=== PATIENT | male | born 1990 | race Caucasian/White ===

== ENCOUNTER 2016-02-23 17:01 | Emergency (ER) | payer OTHER ==
--- NOTE | 2016-02-23 19:27 | ED ORDER SUMMARY ---
..... Patient: EDGARD HORNER OrderSheet [facility] VisitID: [id number] [place] [address] 26y, M Registration Date/Time: 02/23/2016 ORDER SHEET Weight: 99.7 kg (stated) Allergies: PCN GENERAL ORDERS: CBC w Diff Urgent (18:07 02/23/2016 EKoroleva P.A.-C) (Ack 18:36 LNations ER Tech1) (18:46 DDean R.N.) CMP Urgent (18:07 02/23/2016 EKoroleva P.A.-C) (Ack 18:37 LNations ER Tech1) (18:46 DDean R.N.) UA-Culture if indicated Urgent (18:02/23/2016 EKoroleva P.A.-C) (Ack 18:37 LNations ER Tech1) (18:46 DDean R.N.) Lipase Urgent (18:07 02/23/2016 EKoroleva P.A.-C) (Ack 18:37 LNations ER Tech1) (18:46 DDean R.N.) CT Abd/Pel w Cont (No) (see lab) Urgent (19:31 02/23/2016 EKoroleva P.A.-C) (Ack 19:35 NHouse ER Tech1) (20:02 NHouse ER Tech1) MEDICATION ORDERS: IV FLUIDS: IV NS : initial bolus 1000 mL (1000 mL/hr), then 1000 mL/hr for X1 (NOW); Tim (18:07 02/23/2016 EKoroleva P.A.-C) (Ack 18:28 DDean R.N.) (18:47 DDean R.N.) ORDER SHEET NOTES: [Electronically signed by sIatu Valenzuela P.A.-C (20:35 02/23/2016)] [Electronically signed by Mckayla Combs R.N. (21:05 02/23/2016)] [Electronically locked/signed by Mckayla Combs R.N. (21:02/23/2016)]
--- NOTE | 2016-02-23 19:27 | ED ORDER SUMMARY ---
..... Patient: EDGARD HORNER OrderSheet [facility] VisitID: [id number] [place] [address] 26y, M Registration Date/Time: 02/23/2016 ORDER SHEET Weight: 99.7 kg (stated) Allergies: PCN GENERAL ORDERS: CBC w Diff Urgent (18:07 02/23/2016 EKoroleva P.A.-C) (Ack 18:36 LNations ER Tech1) (18:46 DDean R.N.) CMP Urgent (18:07 02/23/2016 EKoroleva P.A.-C) (Ack 18:37 LNations ER Tech1) (18:46 DDean R.N.) UA-Culture if indicated Urgent (18:02/23/2016 EKoroleva P.A.-C) (Ack 18:37 LNations ER Tech1) (18:46 DDean R.N.) Lipase Urgent (18:07 02/23/2016 EKoroleva P.A.-C) (Ack 18:37 LNations ER Tech1) (18:46 DDean R.N.) CT Abd/Pel w Cont (No) (see lab) Urgent (19:31 02/23/2016 EKoroleva P.A.-C) (Ack 19:35 NHouse ER Tech1) (20:02 NHouse ER Tech1) MEDICATION ORDERS: IV FLUIDS: IV NS : initial bolus 1000 mL (1000 mL/hr), then 1000 mL/hr for X1 (NOW); Tim (18:07 02/23/2016 EKoroleva P.A.-C) (Ack 18:28 DDean R.N.) (18:47 DDean R.N.) ORDER SHEET NOTES: [Electronically signed by Isatu Valenzuela P.A.-C (20:35 02/23/2016)] [Electronically signed by Mckayla Combs R.N. (21:05 02/23/2016)] [Electronically locked/signed by Mckayla Combs R.N. (21:02/23/2016)]
--- NOTE | 2016-02-23 19:27 | ED NURSING NOTES ---
Clinical Report - Nurses [facility] [place] [address] 02/23/2016 17:03 [id number] Triage time 17:40 Feb 23 2016. Acuity: LEVEL 3. Chief Complaint: ABDOMINAL PAIN and NAUSEA. Alert. No acute distress. --17:46 Brittney Witt R.N. 17:40 02/23/16. BP: 130/78. HR: 84. RR: 18. O2 saturation: 100%. Temp: 98.2 F. Pain level now 11/23. --17:46 Brittney Witt R.N. Weight: 99.7 kg stated. Height/Length: 73 inches Per Patient. BMI: 29. --17:39 Brittney Witt R.N. Medications Amantadine HCl Oral 100 mg, daily. LamoTRIgine Oral 100mg , daily. [place] Carbonate Oral (Capsule 300 mg), daily . RisperiDONE Oral (Tablet Dispersible 2 mg), 2x a day. Stool Softener Oral. Tylenol, as needed. --17:43 Brittney Witt R.N. Medication/allergy information source: the patient. --17:46 Brittney Witt R.N. Allergies PCN. --17:43 Brittney Witt R.N. History Arrived by private vehicle. Historian: patient. Accompanied by family and father. Primary physician (Maryam). ( Abdominal Pain 11/23. Started Tuesday. Diarrhea. Went to [facility], was told he may have Appendicitis. PROV was a 4 hour wait. Had a temp at [facility] was 100.1.). Onset. (since Tuesday). He has had nausea and diarrhea. Last oral intake by patient was (since last Tuesday). 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 SOCIAL HX: Heavy tobacco smoker (cigarette)- 1 pack per day. History of drug use: marijuana. No alcohol use. No infectious disease exposure. FALL RISK ASSESSMENT: Fall risk assessment completed. No fall risk identified. NUTRITIONAL RISK ASSESSMENT: The nutritional risk assessment revealed no deficiencies. FUNCTIONAL ASSESSMENT: Functional assessment: no impairments noted. LEARNING NEEDS ASSESSMENT: The learning needs assessment revealed no barriers. SKIN INTEGRITY ASSESSMENT: Skin integrity risk assessment completed. No skin integrity risk identified. --17:46 Brittney Witt R.N. PROBLEMS: Anxiety Reaction. Depression. Schizophrenia. Immunizations. --17:44 Brittney Witt R.N. ADDITIONAL SURGERIES: Back Surgery. --17:44 Brittney Witt R.N. Interventions ID band on patient. To room. --17:46 Brittney Witt R.N. PHYSICAL ASSESSMENT 1820. Ambulatory to room. Patient gowned. GENERAL / NEURO / PSYCH: Alert. Oriented X 4. Appears in pain and anxious. ( pt is developmentally delayed). RESPIRATORY: Respirations not labored. CVS: Capillary refill less than 2 seconds. GI / : The patient has diarrhea (1400 last diarrhea). No nausea noted. No emesis noted. ( pt has bruising on left flank area, denies known injury). SKIN: Skin is warm and dry. --18:30 Mckayla Combs R.N. NURSING PROGRESS NOTES 18:20. Patient gowned. Head of bed elevated. Reassurance given. Patient identifiers checked. Call light placed in reach. Side rails up. Bed placed in lowest position. Patient ready for evaluation- chart flagged. --18:27 Mckayla Combs R.N. 18:22. Patient ID band checked for patient name and birthdate: patient confirmed. Clean catch urine collected with return of yellow-colored cloudy urine; sample sent to lab for urinalysis and culture. Specimen labeled in the presence of the patient. --18:28 Mckayla Combs R.N. 18:30 02/23/2016 Site #1 started via IV in the left antecubital space with an 20g angiocath, with aseptic technique and good blood return; one attempt. Blood drawn: rainbow set. Labeled in the presence of the patient and sent to the lab. Saline lock flushed with 10 mL saline. --18:46 Mckayla Combs R.N. <<STRICKEN ENTRY-- 18:30 02/23/2016 Started bag #1 1000 mL IV Fluids IV NS (Saline); at 1000 mL/hr over 1 minute(s) via site #1 via IV pump. IV patency established. IV site checked: no pain, redness, or swelling. IV flushed thoroughly pre- and post-medication administration. --18:47 Mckayla Combs R.N. --END STRIKE>> Correction. --19:35 Mckayla Combs R.N. 18:30 02/23/16. BP: 130/81. HR: 83. RR: 18. Temp: deferred. Pain level now: 10/24. --18:48 Mckayla Combs R.N. 19:33 02/23/16. BP: 122/77. HR: 72. RR: 18. O2 saturation: 97%. Pain level now: 08/23. --19:34 Mckayla Combs R.N. 18:30 02/23/2016 Started bag #1 1000 IV Fluids IV NS (Saline); at 1000 mL/hr over 1 hour(s) via site #1 via IV pump. IV patency established. IV site checked: no pain, redness, or swelling. IV flushed thoroughly pre- and post-medication administration. --19:35 Mckayla Combs R.N. 19:26 02/23/2016 IV Fluids IV NS Discontinued: bag #1 infused. Total amount infused: 1000 mL. IV patency established. IV site checked: no pain, redness, or swelling. IV flushed thoroughly. (converted to saline lock). --19:36 Mckayla Combs R.N. 19:47. Patient transported to OR by stretcher with tech. --20:03 Mckayla Combs R.N. 19:57. Patient returned from CT by stretcher with tech. --20:04 Mckayla Combs R.N. 20:05 02/23/2016 Site #1 removed upon discharge. Bandaid applied. --21:05 Mckayla Combs R.N. DISPOSITION / DISCHARGE 20:15. Condition at departure: stable. Discharge instructions provided and reviewed with the parent. Parent verbalized understanding. Written instructions provided in Yoruba. The patient was discharged home and accompanied by parent. He left the Emergency Department ambulatory and via private vehicle. Parent driving. --21:04 Mckayla Combs R.N. 20:15 02/23/16. BP: 120/70. HR: 76. RR: 18. O2 saturation: 98%. Temp: deferred. Pain level now: 08/23. --21:04 Mckayla Combs R.N. Locked/Released at 02/23/2016 21:05 by Mckayla Combs R.N.
--- NOTE | 2016-02-23 19:27 | ED NURSING NOTES ---
Clinical Report - Nurses [facility] [address] 02/23/2016 17:03 [id number] Triage time 17:40 Feb 23 2016. Acuity: LEVEL 3. Chief Complaint: ABDOMINAL PAIN and NAUSEA. Alert. No acute distress. --17:46 Brittney Witt R.N. 17:40 02/23/16. BP: 130/78. HR: 84. RR: 18. O2 saturation: 100%. Temp: 98.2 F. Pain level now 11/23. --17:46 Brittney Witt R.N. Weight: 99.7 kg stated. Height/Length: 73 inches Per Patient. BMI: 29. --17:39 Brittney Witt R.N. Medications Amantadine HCl Oral 100 mg, daily. LamoTRIgine Oral 100mg , daily. [place] Carbonate Oral (Capsule 300 mg), daily . RisperiDONE Oral (Tablet Dispersible 2 mg), 2x a day. Stool Softener Oral. Tylenol, as needed. --17:43 Brittney Witt R.N. Medication/allergy information source: the patient. --17:46 Brittney Witt R.N. Allergies PCN. --17:43 Brittney Witt R.N. History Arrived by private vehicle. Historian: patient. Accompanied by family and father. Primary physician (Maryam). ( Abdominal Pain 11/23. Started Tuesday. Diarrhea. Went to [facility], was told he may have Appendicitis. PROV was a 4 hour wait. Had a temp at [facility] was 100.1.). Onset. (since Tuesday). He has had nausea and diarrhea. Last oral intake by patient was (since last Tuesday). 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 SOCIAL HX: Heavy tobacco smoker (cigarette)- 1 pack per day. History of drug use: marijuana. No alcohol use. No infectious disease exposure. FALL RISK ASSESSMENT: Fall risk assessment completed. No fall risk identified. NUTRITIONAL RISK ASSESSMENT: The nutritional risk assessment revealed no deficiencies. FUNCTIONAL ASSESSMENT: Functional assessment: no impairments noted. LEARNING NEEDS ASSESSMENT: The learning needs assessment revealed no barriers. SKIN INTEGRITY ASSESSMENT: Skin integrity risk assessment completed. No skin integrity risk identified. --17:46 Brittney Witt R.N. PROBLEMS: Anxiety Reaction. Depression. Schizophrenia. Immunizations. --17:44 Brittney Witt R.N. ADDITIONAL SURGERIES: Back Surgery. --17:44 Brittney Witt R.N. Interventions ID band on patient. To room. --17:46 Brittney Witt R.N. PHYSICAL ASSESSMENT 1820. Ambulatory to room. Patient gowned. GENERAL / NEURO / PSYCH: Alert. Oriented X 4. Appears in pain and anxious. ( pt is developmentally delayed). RESPIRATORY: Respirations not labored. CVS: Capillary refill less than 2 seconds. GI / : The patient has diarrhea (1400 last diarrhea). No nausea noted. No emesis noted. ( pt has bruising on left flank area, denies known injury). SKIN: Skin is warm and dry. --18:30 Mckayla Combs R.N. NURSING PROGRESS NOTES 18:20. Patient gowned. Head of bed elevated. Reassurance given. Patient identifiers checked. Call light placed in reach. Side rails up. Bed placed in lowest position. Patient ready for evaluation- chart flagged. --18:27 Mckayla Combs R.N. 18:22. Patient ID band checked for patient name and birthdate: patient confirmed. Clean catch urine collected with return of yellow-colored cloudy urine; sample sent to lab for urinalysis and culture. Specimen labeled in the presence of the patient. --18:28 Mckayla Combs R.N. 18:30 02/23/2016 Site #1 started via IV in the left antecubital space with an 20g angiocath, with aseptic technique and good blood return; one attempt. Blood drawn: rainbow set. Labeled in the presence of the patient and sent to the lab. Saline lock flushed with 10 mL saline. --18:46 Mckayla Combs R.N. <<STRICKEN ENTRY-- 18:30 02/23/2016 Started bag #1 1000 mL IV Fluids IV NS (Saline); at 1000 mL/hr over 1 minute(s) via site #1 via IV pump. IV patency established. IV site checked: no pain, redness, or swelling. IV flushed thoroughly pre- and post-medication administration. --18:47 cMkayla Combs R.N. --END STRIKE>> Correction. --19:35 Mckayla Combs R.N. 18:30 02/23/16. BP: 130/81. HR: 83. RR: 18. Temp: deferred. Pain level now: 10/24. --18:48 Mckayla Combs R.N. 19:33 02/23/16. BP: 122/77. HR: 72. RR: 18. O2 saturation: 97%. Pain level now: 08/23. --19:34 Mckayla Combs R.N. 18:30 02/23/2016 Started bag #1 1000 IV Fluids IV NS (Saline); at 1000 mL/hr over 1 hour(s) via site #1 via IV pump. IV patency established. IV site checked: no pain, redness, or swelling. IV flushed thoroughly pre- and post-medication administration. --19:35 Mckayla Combs R.N. 19:26 02/23/2016 IV Fluids IV NS Discontinued: bag #1 infused. Total amount infused: 1000 mL. IV patency established. IV site checked: no pain, redness, or swelling. IV flushed thoroughly. (converted to saline lock). --19:36 Mckayla Combs R.N. 19:47. Patient transported to [place] by stretcher with tech. --20:03 Mckayla Combs R.N. 19:57. Patient returned from CT by stretcher with tech. --20:04 Mckalya Combs R.N. 20:05 02/23/2016 Site #1 removed upon discharge. Bandaid applied. --21:05 Mckayla Combs R.N. DISPOSITION / DISCHARGE 20:15. Condition at departure: stable. Discharge instructions provided and reviewed with the parent. Parent verbalized understanding. Written instructions provided in Telugu. The patient was discharged home and accompanied by parent. He left the Emergency Department ambulatory and via private vehicle. Parent driving. --21:04 Mckayla Combs R.N. 20:15 02/23/16. BP: 120/70. HR: 76. RR: 18. O2 saturation: 98%. Temp: deferred. Pain level now: 08/23. --21:04 Mckayla Combs R.N. Locked/Released at 02/23/2016 21:05 by Mckayla Combs R.N.
--- NOTE | 2016-02-23 19:27 | ED CLINICAL REPORT ---
Clinical Report - Physicians/Mid Levels [facility] [address] [place] [address] 02/23/2016 17:03 Patient: EDGARD HORNER Time Seen: 18:50 Feb 23 2016. Arrived- By private vehicle. Historian- patient. HISTORY OF PRESENT ILLNESS Chief Complaint: ABDOMINAL PAIN. This started just prior to arrival and is still present. It is described as "pain" and it is described as located in the periumbilical area. (patient reports abdominal pain in the last 3 days, with associated diarrhea, loose stools. Denies any hematochezia. patient reports left-sided pain, which is significant. Denies any urinary burning. Denies any urgency or frequency.). REVIEW OF SYSTEMS No constipation, black stools, difficulty with urination, pain with urination or sore throat. All systems otherwise negative, except as recorded above. PAST HISTORY history of IBS. Problems: Anxiety Reaction. Depression. Schizophrenia. Immunizations. Additional Surgeries: Back Surgery. Medications: Amantadine HCl Oral 100 mg, daily. LamoTRIgine Oral 100mg , daily. [place] Carbonate Oral (Capsule 300 mg), daily . RisperiDONE Oral (Tablet Dispersible 2 mg), 2x a day. Stool Softener Oral. Tylenol, as needed. Allergies: PCN. SOCIAL HISTORY Smoker- current status unknown. History of drug use: marijuana. No alcohol use. ADDITIONAL NOTES The nursing notes have been reviewed. PHYSICAL EXAM Vital Signs: 02/23/2016 17:40 BP: 130/78. HR: 84. RR: 18. O2 saturation: 100%. Temp: 98.2 F. Appearance: Alert. ENT: Nose normal. Pharynx normal. Neck: Normal inspection. CVS: Normal heart rate and rhythm. Heart sounds normal. Respiratory: No respiratory distress. Breath sounds normal. Abdomen: Soft. Mild tenderness in the left side of the abdomen and left lower quadrant. Back: Normal inspection. No CVA tenderness. Skin: Skin warm. Normal skin color. LABS, X-RAYS, AND EKG Abdominal CT: IMPRESSION: 1. Status post thoracolumbar spine surgery. 2. Otherwise negative CT abdomen. 3. Moderate mucosal thickening of the urinary bladder. Consider urinary cystitis (e.g., bacterial, interstitial). 4. Otherwise negative CT pelvis. 5. Findings discussed with THOMAS Bejarano. All CT scans at this facility use dose modulation, iterative reconstruction, and/or weight-based dosing when appropriate to reduce radiation dose to as low as reasonably achievable. Electronically Final signed by:Camden Perez MD 02/23/2016 8:12:24 PM. Laboratory Tests: UA-Culture if indicated: (MORELIA: 02/23/2016 18:22) ( MsgRcvd 02/23/2016 18:58) Final results Test Result Flag Units (Reference) URINE COLOR YELLOW URINE APPEARANCE CLEAR URINE GLUCOSE NEGATIVE (NEGATIVE) URINE BILIRUBIN NEGATIVE (NEGATIVE) URINE KETONE NEGATIVE (NEGATIVE) URINE SPECIFIC GRAVITY >= 1.030 (1.010-1.030) URINE PH 6.0 (5.0-8.0) URINE PROTEIN NEGATIVE (NEGATIVE) URINE UROBILINOGEN 0.2 EU/dL (0.2-1.0) URINE NITRITE NEGATIVE (NEGATIVE) URINE BLOOD NEGATIVE (NEGATIVE) URINE LEUK ESTERASE NEGATIVE (NEGATIVE) URINE RBC NONE SEEN rbc/hpf (0-1) URINE WBC 0-1 wbc/hpf (0-1) URINE EPITHELIAL CELLS 1-3 EPI/hpf (0-5) URINE BACTERIA TRACE (<1+) (NONE SEEN) URINE COMMENT CULT NOT INDICATED 2 m.l. patient sample submitted,URINE CULTURES ARE SET-UP BASED ON THE FOLLOWING CRITERIA:POSITIVE NITRITEPOSITIVE LEUKOCYTE ESTERASEGREATER THAN 10 WHITE BLOOD CELLSMODERATE (2+) OR GREATER BACTERIA CBC w Diff: (MORELIA: 02/23/2016 18:30) ( AzgRcvd 02/23/2016 18:59) Final results Test Result Flag Units (Reference) WHITE BLOOD COUNT 8.7 K/uL (4.5-11.5) RED BLOOD COUNT 5.12 M/uL (4.50-5.90) HEMOGLOBIN 16.0 gm/dL (13.5-17.5) HEMATOCRIT 48.6 % (41.0-53.0) MEAN CELL VOLUME 95 fL (80-100) MEAN CORPUSCULAR HGB 31 pg (26-34) MEAN CORPUSCULAR HGB CONC 33 g/dL (31-37) RED CELL DISTRIBUTION WIDTH 13.3 % (11.6-14.8) PLATELET COUNT 156 K/uL (150-400) NEUTROPHIL % 53.0 % (50-75) LYMPH % 38.2 % (25-40) MONO % 5.5 % (3-14) EOSINOPHIL % 2.8 % (0-4) BASOPHIL % 0.5 % (0-2) CMP: (MORELIA: 02/23/2016 18:30) ( MsgRcvd 02/23/2016 19:43) Final results Test Result Flag Units (Reference) GLUCOSE 96 mg/dL (70-110) BUN 7 mg/dL (7-18) CREATININE 0.8 mg/dL (0.6-1.3) Estimated GFR >60 mL/min Estimated GFR- >60 mL/min Note: Persistent reduction over 3 months in eGFR<60 mL/min/1.73 m2 defines CKD. Patients with eGFR values>=60 mL/min/1.73 m2 may also have CKD if evidence ofpersistent proteinuria. Additional information may be foundat www.kidney.org. SODIUM 141 mmol/L (136-145) POTASSIUM 3.7 mmol/L (3.5-5.1) CHLORIDE 104 mmol/L (98-107) CARBON DIOXIDE 32 mmol/L (21-32) CALCIUM 9.3 mg/dL (8.5-10.1) TOTAL PROTEIN 7.5 g/dL (6.4-8.2) ALBUMIN 4.4 g/dL (3.3-5.0) BILIRUBIN, TOTAL 0.4 mg/dL (0.0-1.0) ALKALINE PHOSPHATASE 95 U/L (46-116) AST (SGOT) 23 U/L (15-37) ALT (SGPT) 68 U/L (12-78) LIPASE 261 U/L (73-393) . PROGRESS AND PROCEDURES Course of Care: at this time, urinalysis is unremarkable, labs are unremarkable, CT abdomen is unremarkable. Suspect IBS, patient is stable or recent trauma. To follow up outpatient. During the time in the ED, the following DDX were considered: acute surgical abdomen, hemodynamic or metabolic instability, dehydration, gastroenteritis-viral, food borne, or bacterial, food intolerance, irritable or inflammatory bowel, infection, sepsis. Patient is stable. Disposition: Discharged. CLINICAL IMPRESSION Acute abdominal pain of unknown cause. INSTRUCTIONS No strenuous activity. Rest. Drink plenty of fluids. Follow-up: Follow up with your doctor in three days. (Electronically signed by Isatu Valenzuela P.A.-C 02/23/2016 20:35)
--- NOTE | 2016-02-23 20:14 | DIAGNOSTIC IMAGING REPORT ---
PROCEDURE: CT ABD/PELVIS WITH CONTRAST INDICATION: Left abdominal pain. Nausea. TECHNIQUE: 125 ml of Isovue 300 were injected intravenously and axial images were obtained of the entire abdomen and pelvis with sagittal and coronal reformations. COMPARISON: Comparison is made to CT abdomen and pelvis on 04/07/2010. FINDINGS: ABDOMEN: Status post thoracolumbar spine surgery with metal Hernandez rods (metal artifact obscures some of the detail). Gallbladder, liver, spleen, pancreas, kidneys, and aorta are normal. Bowel pattern is normal, including appendix (extends to the left abdomen). PELVIS: Moderate mucosal thickening of the urinary bladder. Pelvic structures are otherwise normal. No evidence of free fluid. IMPRESSION: 1. Status post thoracolumbar spine surgery. 2. Otherwise negative CT abdomen. 3. Moderate mucosal thickening of the urinary bladder. Consider urinary cystitis (e.g., bacterial, interstitial). 4. Otherwise negative CT pelvis. 5. Findings discussed with THOMAS Bejarano. All CT scans at this facility use dose modulation, iterative reconstruction, and/or weight-based dosing when appropriate to reduce radiation dose to as low as reasonably achievable.
--- NOTE | 2016-02-23 21:05 | ED MAR SUMMARY ---
..... Medication Administration Record [facility] [address] [place] [address] Patient: EDGARD HORNER Visit ID: [id number] 26y, M Weight: 99.7 kg Height/Length: 73 in BMI: 29 ALLERGIES: PCN Start 18:30 02/23/2016 Mckayla Combs R.N., Stop 19:26 02/23/2016 Mckayla Combs R.N. Medication Administered: IV NS (SALINE), Dose: IV Fluids over 1 hour(s), Rate: 1000 mL/hr, Dispensed: 1000 mL bag, Site: #1 left AC. Medication Ordered: IV NS : initial bolus 1000 mL (1000 mL/hr), then 1000 mL/hr for X1 (NOW); Tim.
--- NOTE | 2016-02-23 21:05 | ED MAR SUMMARY ---
..... Medication Administration Record [facility] [address] [place] [address] Patient: EDGARD HORNER Visit ID: [id number] 26y, M Weight: 99.7 kg Height/Length: 73 in BMI: 29 ALLERGIES: PCN Start 18:30 02/23/2016 Mckayla Combs R.N., Stop 19:26 02/23/2016 Mckayla Combs R.N. Medication Administered: IV NS (SALINE), Dose: IV Fluids over 1 hour(s), Rate: 1000 mL/hr, Dispensed: 1000 mL bag, Site: #1 left AC. Medication Ordered: IV NS : initial bolus 1000 mL (1000 mL/hr), then 1000 mL/hr for X1 (NOW); Tim.
--- NOTE | 2016-02-23 21:05 | ED DISCHARGE INSTRUCTIONS ---
Patient: EDGARD HORNER General Instructions [facility] VisitID: [id number] [place] [address] 26y, M Registration Date/Time: 02/23/2016 Acute abdominal pain of unknown cause. INSTRUCTIONS No strenuous activity. Rest. Drink plenty of fluids. Follow-up: Follow up with your doctor in three days. ADDITIONAL INFORMATION Abdominal Pain,Uncertain Cause [Male] Based on your visit today, the exact cause of your abdominalpain is not clear. Your exam and tests do not indicate a dangerous cause at this time. However, the signs of a serious problem may take more time to appear. Although your evaluation was reassuring today, sometimes early in the course of many conditions, exam and lab tests can appear normal. Therefore, it is important for you to watch for any new symptoms or worsening of your condition. Causes It may not be obvious what caused your symptoms. Pay attention to things that do seem to make your symptoms worse or better and discuss this with your doctor when you follow up. Diagnosis The evaluation of abdominal pain in the emergency department may onlyrequire an exam by the doctor or it may include blood, urine or imaging studies, depending on many factors. Sometimes exams and tests can identify a cause but in many cases, a clear cause is not found. Further testing at follow up visits may help to suggest a clear diagnosis. Home Care Rest as much as possible until your next exam. Try to avoid any medications (unless otherwise directed by your doctor), foods, activities, or other factors that you may have contributed to your symptoms. Try to eat foods that you know that you have tolerated well in the past. Certain diets may be recommended for some conditions that cause abdominal pain. However, since the cause of your symptoms may not be clear, discuss your diet more with your primary care provider or specialist for further recommendations. Eating several small meals per day as opposed to 2 or 3 larger meals may help. Monitor closely for anything that may make your symptoms worse or better. Pay close attention to symptoms below that may indicate worsening of your condition. Follow Up and Precautions See your doctoras instructed or sooneror if your symptoms are not improving.In some cases, you may need more testing. When to Seek Medical Attention Contact your doctor or see medical attention ifany of the following occur: Pain is becoming worse You are unable to take your medications due to excessive vomiting Swelling of the abdomen Fever of 100.4F (38C) or higher, or as directed by your health care provider Blood in vomit or bowel movements (dark red or black color) Jaundice (yellow color of eyes and skin) New onset of weakness, dizziness or fainting New onset of chest, arm, back, neck or jaw pain Symptoms With Uncertain Cause [Adult] Based on the exam and any tests that were performed today, the exact cause of your symptoms is not certain. While your condition does not seem serious, the signs of a serious problem may take more time to appear. Therefore, it is important for you to watch for any new symptoms or worsening of your condition.Follow up with your doctor or this facility, as directed.A repeat physical exam or additional testing at a later time may uncover a cause for your symptoms that is not evident today. Home Care: Resume your usual activities and diet when this feels comfortable to do so. Follow Up with your doctor, or as advised by our staff.Contact your doctor sooner if your symptoms do not begin to improve in the next few days. [NOTE: If you had an x-ray, CT scan, ultrasound, or ECG (electrocardiogram), it will be reviewed by a specialist. You will be notified of any new findings that may affect your care.] Get Prompt Medical Attention if any of the following occur: Current symptoms get worse New symptoms appear [place] Diet A bland diet is used for patients with an upset stomach. It consists of foods that are mild and easy to digest. It is better to eat small frequent meals rather than three large meals a day. BEVERAGES OK: Fruit juices, non-caffeinated teas and coffee, non-carbonated [place] AVOID: Carbonated beverage, caffeinated tea and coffee, all alcoholic beverages BREAD OK: Refined white, wheat or rye bread, rosi or soda crackers, [place] toast, plain rolls, bagels AVOID: Whole-grain bread CEREAL OK: Refined cereals: cooked or ready to eat AVOID: Whole grain cereals and granola, or those containing bran, seeds or nuts DESSERTS OK: Peanut butter and all others except those to "avoid" AVOID: Chocolate, cocoa, coconut, popcorn, nuts, seeds, jam, marmalade FRUITS OK: Canned, cooked, frozen or fresh fruits without seeds or tough skin AVOID: Olives, skin and seeds of fruit MEATS OK: All fresh or preserved meat, fish and fowl AVOID: Any that are prepared with those spices to "avoid" CHEESE & EGGS OK: Eggs, cottage cheese, cream cheese, other cheeses AVOID: All cheeses made with those spices to "avoid" POTATOES & PASTA OK: Potato, rice, macaroni, noodles, spaghetti AVOID: None SOUPS OK: All soups without heavy seasoning AVOID: Soups made with those spices to "avoid" VEGETABLES OK: Canned, cooked, fresh or frozen mildly flavored vegetables without seeds, skins or coarse fiber AVOID: Vegetables prepared with those spices to "avoid"; skin and seeds of vegetables and those with coarse fiber SPICES OK: Salt, lemon and teller juice, vinegar, all extracts, thelma, cinnamon, thyme, mace, allspice, paprika AVOID: [place] powder, cloves, pepper, seed spices, garlic, gravy pickles, highly seasoned salad dressings Clear Liquid Diet Clear liquids are any liquid that you can see through as well as those that are very easy to digest. This is used while the body is recovering from irritation or infection of the stomach or intestinal tract. It may also be used before special procedures or surgery. This diet is to be used no more than three days. You may include the following items. Adults Adults should drink a total of 23 quarts of liquid per day. It may be easier to drink small frequent servings rather than a few large ones. Liquids can include: Fruit juices.Strained orange juice or lemonade (no pulp), apple, grape and cranberry juice, clear fruit drinks, sports drinks Beverages.Sport drinks, sodas, mineral water (plain or flavored), tea, black coffee, liquid gelatin (add twice the recommended amount of water) Soups.Clear broth, consomm, bouillon Desserts.Plain gelatin, popsicles, fruit juice bars Children Over 2 years old The following liquids are acceptable for children over age 2: Fruit juices.Strained orange juice or lemonade (no pulp), apple, grape and cranberry juice, clear fruit drinks Beverages. Sports drinks, sodas, mineral water (plain or flavored), tea, liquid gelatin (add twice the recommended amount of water) Soups. Clear broth, consomm, bouillon Desserts. Plain gelatin, popsicles, fruit juice bars Children under 2 years old Oral rehydration fluids such are available at drug stores and most grocery stores without a prescription. You have been given the following additional information: Abdominal Pain, Unknown Cause, (Male) Symptoms With Uncertain Cause Diet, [place] (Adult) Diet, Clear Liquid No strenuous activity. Rest. (Electronically signed by Isatu Valenzuela P.A.-C 02/23/2016 20:35)
--- NOTE | 2016-02-23 21:05 | ED MED RECONCILIATION SUMMARY ---
Patient: EDGARD HORNER Medication Reconciliation Report [facility] VisitID: [id number] [address] [place] [address] 26y, M Registration Date/Time: 02/23/2016 Weight: 99.7 kg Height/Length: 73 in. BMI: 29.0 ALLERGIES: PCN The patient's Home Medications are listed below: THE FOLLOWING MEDICATIONS NEED TO BE RECONCILED: Amantadine HCl Oral 100 mg, daily LamoTRIgine Oral 100mg , daily [place] Carbonate Oral (300 mg), daily RisperiDONE Oral (2 mg), 2x a day Stool Softener Oral Tylenol The source(s) of the original Home Medication information: patient The following Medications were given to the patient in the Emergency Department: IV NS IV Fluids bolus 0, then 1000 mL/hr, administered: 02/23/2016 6:30:00 PM The following Medications were prescribed to the patient: None.
--- NOTE | 2016-02-23 21:05 | ED MED RECONCILIATION SUMMARY ---
Patient: EDGARD HORNER Medication Reconciliation Report [facility] VisitID: [id number] [address] [place] [address] 26y, M Registration Date/Time: 02/23/2016 Weight: 99.7 kg Height/Length: 73 in. BMI: 29.0 ALLERGIES: PCN The patient's Home Medications are listed below: THE FOLLOWING MEDICATIONS NEED TO BE RECONCILED: Amantadine HCl Oral 100 mg, daily LamoTRIgine Oral 100mg , daily [place] Carbonate Oral (300 mg), daily RisperiDONE Oral (2 mg), 2x a day Stool Softener Oral Tylenol The source(s) of the original Home Medication information: patient The following Medications were given to the patient in the Emergency Department: IV NS IV Fluids bolus 0, then 1000 mL/hr, administered: 02/23/2016 6:30:00 PM The following Medications were prescribed to the patient: None.
== END 2016-02-23 20:15 | disposition home or self-care (01) ==
LOC: ED SRH 17:01
DX: R10.33 Periumbilical pain (principal); F20.9 Schizophrenia, unspecified; Z79.899 Other long term (current) drug therapy; F17.210 Nicotine dependence, cigarettes, uncomplicated; Z88.0 Allergy status to penicillin
CPT/HCPCS: 90004; 90100; 92235; 95059

== ENCOUNTER 2016-04-11 10:57 | Emergency (ER) | payer OTHER ==
--- NOTE | 2016-04-11 12:39 | ED NURSING NOTES ---
Clinical Report - Nurses [facility] [address] [place] [address] 04/11/2016 10:59 Patient: EDGARD HORNER TRIAGE Acuity: LEVEL 3. Chief Complaint: SKIN PROBLEM and BOIL. Alert. No acute distress. SEPSIS SCREEN: Sepsis Screen. Negative (no infection suspected/documented). --11: Tayler Moran R.N. 11:23 04/11/16. BP: 132/84. HR: 66. RR: 20. O2 saturation: 98% on room air. Temp: 98.2 F (oral). Pain level now: 09/23. --11: Tayler Moran R.N. Weight: 100.6 kg stated. Height/Length: 73 inches Per Patient. BMI: 29.3. --11: Tayler Moran R.N. Medications Amantadine HCl Oral 100 mg, daily. LamoTRIgine Oral 100mg , daily. [place] Carbonate Oral (Capsule 300 mg), daily . RisperiDONE Oral (Tablet Dispersible 2 mg), 2x a day. Stool Softener Oral. Tylenol, as needed. --11: Tayler Moran R.N. Doxycycline Calcium Oral. --11: Tayler Moran R.N. Medication/allergy information source: the patient. --11: Tayler Moran R.N. Allergies PCN. --11: Tayler Moran R.N. History Arrived by private vehicle. Historian: patient. Accompanied by father. Reported as located on the left buttock and left thigh. Onset. (3 years ago). 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 I get rid of it and it comes back." Pt was seen at a clinic 3 days ago and given doxycycline.). 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 PAST MEDICAL HX: Immunizations: up-to-date. SOCIAL HX: Current every day heavy tobacco smoker- more than 2 packs per day. History of heavy drug use: marijuana. No alcohol use. FALL RISK ASSESSMENT: Fall risk assessment completed. No fall risk identified. NUTRITIONAL RISK ASSESSMENT: The nutritional risk assessment revealed no deficiencies. FUNCTIONAL ASSESSMENT: Functional assessment: no impairments noted. LEARNING NEEDS ASSESSMENT: The learning needs assessment revealed no barriers. SKIN INTEGRITY ASSESSMENT: Skin integrity risk assessment completed. No skin integrity risk identified. --11:29 Tayler Moran R.N. PROBLEMS: Abdominal Pain. Anxiety Reaction. Depression. Schizophrenia. Immunizations. --: Tayler Moran R.N. ADDITIONAL SURGERIES: Back Surgery. --11: Tayler Moran R.N. Assessment GENERAL / NEURO / PSYCH: Alert. Oriented X 4. Appears in no acute distress. Patient appears calm and cooperative. RESPIRATORY: Respirations not labored. CVS: Capillary refill less than 2 seconds. GI / : Abdomen soft and nontender. SKIN: Mucous membranes are pink. Skin is warm and dry. --11: Tayler Moran R.N. Interventions ID band on patient. To treatment room. --11: Tayler Moran R.N. PHYSICAL ASSESSMENT Ambulatory to room. GENERAL / NEURO / PSYCH: Alert. The patient does not appear to be in acute distress. Oriented X 4. HEENT: Pupils equal, round and reactive to light. Mucous membranes are pink. RESPIRATORY: Respirations not labored. CVS: Capillary refill less than 2 seconds. SKIN: Skin is warm and dry. Multiple skin lesions on the left buttock and left thigh. Normal skin turgor. --11:38 Tayler Moran R.N. NURSING PROGRESS NOTES 11:29 04/11/16. Patient gowned. Two patient identifiers checked. Call light placed in reach. Side rails up x 1. Bed placed in lowest position. Brakes of bed on. Patient ready for evaluation- chart flagged and ED physician notified. --11:29 Tayler Moran R.N. DISPOSITION / DISCHARGE Departure time: 12:40 Apr 11 2016. Condition at departure: improved and stable. No learning barriers present. Discharge instructions provided and reviewed with the patient and parent. Reviewed medication(s) side effects, precautions, dosing and course information. Prescription(s) given to the patient (bactrim). Patient and parent verbalized understanding. Written instructions provided in Pashto. The patient was discharged by the physician rehab care assistant. He was discharged home and accompanied by parent. He left the Emergency Department ambulatory and via private vehicle. Parent driving. --18:00 Tayler Moran R.N. Locked/Released at 04/11/2016 18:01 by Tayler Moran R.N.
--- NOTE | 2016-04-11 12:39 | ED CLINICAL REPORT ---
Clinical Report - Physicians/Mid Levels [facility] [address] [place] [address] 04/11/2016 10:59 Patient: EDGARD HORNER Time Seen: 12:21; initial patient contact. Arrived- By private vehicle. Historian- patient. HISTORY OF PRESENT ILLNESS Chief Complaint: BOIL. This started 2 weeks ago; disabled patient here with his father, states he has a burning rash with history of MRSA and boils to the groin and buttocks for years, and is acting up...is currently on doxycycline. It is described as itchy, painful and burning. It has been located on the trunk. A and a possible cause has been identified (mrsa). No recent medication or insect bite. Similar symptoms previously: Many times. Recent medical care: The patient was seen recently at another facility in a clinic. REVIEW OF SYSTEMS No fever, chills, sore throat, cough or difficulty breathing. No enlarged lymph nodes. All systems otherwise negative, except as recorded above. PAST HISTORY See nurses notes. Tetanus immunization status is up-to-date. Problems: Abdominal Pain. Anxiety Reaction. Depression. Schizophrenia. Immunizations. Medications: Doxycycline Calcium Oral. Amantadine HCl Oral 100 mg, daily. LamoTRIgine Oral 100mg , daily. [place] Carbonate Oral (Capsule 300 mg), daily . RisperiDONE Oral (Tablet Dispersible 2 mg), 2x a day. Stool Softener Oral. Tylenol, as needed. Allergies: PCN. SOCIAL HISTORY Never smoker. No alcohol use or drug use. FAMILY HISTORY Negative. ADDITIONAL NOTES The nursing notes have been reviewed with agreement regarding the chief complaint, HPI, ROS, PMH and patient medications and allergies. PHYSICAL EXAM Vital Signs: 04/11/2016 11:23 BP: 132/84. HR: 66. RR: 20. O2 saturation: 98%. Temp: 98.2 F. Pain level now: 8/10. Have been reviewed as normal. Appearance: Alert. Oriented X3. No acute distress. Skin: Skin warm and dry. Normal skin color. Normal skin turgor. No tender indurated area. No cellulitis. Mild, papular skin rash with an erythematous base in the left groin, on the perineum and left buttock- located on inner left groin. The rash is papular. No warmth, lymphangitis, induration, swelling or abscess. There is tenderness. Neuro: Oriented X 3. PROGRESS AND PROCEDURES Course of Care: Patient is stable. CLINICAL IMPRESSION MRSA (Methicillin resistant Staph aureus) abscess located on the buttocks (no fluid collection or abscess currently). INSTRUCTIONS No restrictions to activity. No dietary restrictions. (use the bactroban you have three times daily on sores and intranasally twice daily, and finish all your antibiotics. see your pcp for follow up and you might benefit from dermatology referral.). Warnings: Further evaluation is necessary. It is very important to follow up with a physician. GENERAL WARNINGS: Return or contact your physician immediately if your condition worsens or changes unexpectedly, if not improving as expected, or if other problems arise. Your Current Medications: CONTINUE TAKING THE FOLLOWING MEDICATIONS: Amantadine HCl Oral : 100 mg daily. Doxycycline Calcium Oral. LamoTRIgine Oral : 100mg daily. [place] Carbonate Oral : Capsule 300 mg, daily. RisperiDONE Oral : Tablet Dispersible 2 mg, 2x a day. Stool Softener Oral. Tylenol* : prn. Prescription Medications: Bactrim DS 800 mg / 160 mg: take 1 tablet orally every 12 hours for 10 days. No refill. Substitution is permissible. Follow-up: Follow up with a senior investment analyst in two weeks if not better. Reason for referral: dermatitis, likely staph/MRSA. Understanding of the discharge instructions verbalized by patient and family. (Electronically signed by Shiela Liang PA-C 04/11/2016 13:09)
--- NOTE | 2016-04-11 12:39 | ED CLINICAL REPORT ---
Clinical Report - Physicians/Mid Levels Located [facility] [address] [place] [address] 04/11/2016 10:59 Patient: EDGARD HORNER Time Seen: 12:21; initial patient contact. Arrived- By private vehicle. Historian- patient. HISTORY OF PRESENT ILLNESS Chief Complaint: BOIL. This started 2 weeks ago; disabled patient here with his father, states he has a burning rash with history of MRSA and boils to the groin and buttocks for years, and is acting up...is currently on doxycycline. It is described as itchy, painful and burning. It has been located on the trunk. A and a possible cause has been identified (mrsa). No recent medication or insect bite. Similar symptoms previously: Many times. Recent medical care: The patient was seen recently at another facility in a clinic. REVIEW OF SYSTEMS No fever, chills, sore throat, cough or difficulty breathing. No enlarged lymph nodes. All systems otherwise negative, except as recorded above. PAST HISTORY See nurses notes. Tetanus immunization status is up-to-date. Problems: Abdominal Pain. Anxiety Reaction. Depression. Schizophrenia. Immunizations. Medications: Doxycycline Calcium Oral. Amantadine HCl Oral 100 mg, daily. LamoTRIgine Oral 100mg , daily. [place] Carbonate Oral (Capsule 300 mg), daily . RisperiDONE Oral (Tablet Dispersible 2 mg), 2x a day. Stool Softener Oral. Tylenol, as needed. Allergies: PCN. SOCIAL HISTORY Never smoker. No alcohol use or drug use. FAMILY HISTORY Negative. ADDITIONAL NOTES The nursing notes have been reviewed with agreement regarding the chief complaint, HPI, ROS, PMH and patient medications and allergies. PHYSICAL EXAM Vital Signs: 04/11/2016 11:23 BP: 132/84. HR: 66. RR: 20. O2 saturation: 98%. Temp: 98.2 F. Pain level now: 8/10. Have been reviewed as normal. Appearance: Alert. Oriented X3. No acute distress. Skin: Skin warm and dry. Normal skin color. Normal skin turgor. No tender indurated area. No cellulitis. Mild, papular skin rash with an erythematous base in the left groin, on the perineum and left buttock- located on inner left groin. The rash is papular. No warmth, lymphangitis, induration, swelling or abscess. There is tenderness. Neuro: Oriented X 3. PROGRESS AND PROCEDURES Course of Care: Patient is stable. CLINICAL IMPRESSION MRSA (Methicillin resistant Staph aureus) abscess located on the buttocks (no fluid collection or abscess currently). INSTRUCTIONS No restrictions to activity. No dietary restrictions. (use the bactroban you have three times daily on sores and intranasally twice daily, and finish all your antibiotics. see your pcp for follow up and you might benefit from dermatology referral.). Warnings: Further evaluation is necessary. It is very important to follow up with a physician. GENERAL WARNINGS: Return or contact your physician immediately if your condition worsens or changes unexpectedly, if not improving as expected, or if other problems arise. Your Current Medications: CONTINUE TAKING THE FOLLOWING MEDICATIONS: Amantadine HCl Oral : 100 mg daily. Doxycycline Calcium Oral. LamoTRIgine Oral : 100mg daily. [place] Carbonate Oral : Capsule 300 mg, daily. RisperiDONE Oral : Tablet Dispersible 2 mg, 2x a day. Stool Softener Oral. Tylenol* : prn. Prescription Medications: Bactrim DS 800 mg / 160 mg: take 1 tablet orally every 12 hours for 10 days. No refill. Substitution is permissible. Follow-up: Follow up with a palliative care nurse in two weeks if not better. Reason for referral: dermatitis, likely staph/MRSA. Understanding of the discharge instructions verbalized by patient and family. (Electronically signed by Shiela Liang PA-C 04/11/2016 13:09)
--- NOTE | 2016-04-11 12:39 | ED NURSING NOTES ---
Clinical Report - [facility] [address] [place] [address] 04/11/2016 10:59 Patient: EDGARD HORNER TRIAGE Acuity: LEVEL 3. Chief Complaint: SKIN PROBLEM and BOIL. Alert. No acute distress. SEPSIS SCREEN: Sepsis Screen. Negative (no infection suspected/documented). --11: Tayler Moran R.N. 11:23 04/11/16. BP: 132/84. HR: 66. RR: 20. O2 saturation: 98% on room air. Temp: 98.2 F (oral). Pain level now: 09/23. --11: Tayler Moran R.N. Weight: 100.6 kg stated. Height/Length: 73 inches Per Patient. BMI: 29.3. --11: Tayler Moran R.N. Medications Amantadine HCl Oral 100 mg, daily. LamoTRIgine Oral 100mg , daily. [place] Carbonate Oral (Capsule 300 mg), daily . RisperiDONE Oral (Tablet Dispersible 2 mg), 2x a day. Stool Softener Oral. Tylenol, as needed. --11: Tayler Moran R.N. Doxycycline Calcium Oral. --11: Tayler Moran R.N. Medication/allergy information source: the patient. --11: Tayler Moran R.N. Allergies PCN. --11: Tayler Moran R.N. History Arrived by private vehicle. Historian: patient. Accompanied by father. Reported as located on the left buttock and left thigh. Onset. (3 years ago). 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 I get rid of it and it comes back." Pt was seen at a clinic 3 days ago and given doxycycline.). 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 PAST MEDICAL HX: Immunizations: up-to-date. SOCIAL HX: Current every day heavy tobacco smoker- more than 2 packs per day. History of heavy drug use: marijuana. No alcohol use. FALL RISK ASSESSMENT: Fall risk assessment completed. No fall risk identified. NUTRITIONAL RISK ASSESSMENT: The nutritional risk assessment revealed no deficiencies. FUNCTIONAL ASSESSMENT: Functional assessment: no impairments noted. LEARNING NEEDS ASSESSMENT: The learning needs assessment revealed no barriers. SKIN INTEGRITY ASSESSMENT: Skin integrity risk assessment completed. No skin integrity risk identified. --11:29 Tayler oMran R.N. PROBLEMS: Abdominal Pain. Anxiety Reaction. Depression. Schizophrenia. Immunizations. --: Tayler Moran R.N. ADDITIONAL SURGERIES: Back Surgery. --11: Tayler Moran R.N. Assessment GENERAL / NEURO / PSYCH: Alert. Oriented X 4. Appears in no acute distress. Patient appears calm and cooperative. RESPIRATORY: Respirations not labored. CVS: Capillary refill less than 2 seconds. GI / : Abdomen soft and nontender. SKIN: Mucous membranes are pink. Skin is warm and dry. --11: Tayler Moran R.N. Interventions ID band on patient. To treatment room. --11: Tayler Moran R.N. PHYSICAL ASSESSMENT Ambulatory to room. GENERAL / NEURO / PSYCH: Alert. The patient does not appear to be in acute distress. Oriented X 4. HEENT: Pupils equal, round and reactive to light. Mucous membranes are pink. RESPIRATORY: Respirations not labored. CVS: Capillary refill less than 2 seconds. SKIN: Skin is warm and dry. Multiple skin lesions on the left buttock and left thigh. Normal skin turgor. --11:38 Tayler Moran R.N. NURSING PROGRESS NOTES 11:29 04/11/16. Patient gowned. Two patient identifiers checked. Call light placed in reach. Side rails up x 1. Bed placed in lowest position. Brakes of bed on. Patient ready for evaluation- chart flagged and ED physician notified. --11:29 Tayler Moran R.N. DISPOSITION / DISCHARGE Departure time: 12:40 Apr 11 2016. Condition at departure: improved and stable. No learning barriers present. Discharge instructions provided and reviewed with the patient and parent. Reviewed medication(s) side effects, precautions, dosing and course information. Prescription(s) given to the patient (bactrim). Patient and parent verbalized understanding. Written instructions provided in Latvian. The patient was discharged by the physician fleet assistant. He was discharged home and accompanied by parent. He left the Emergency Department ambulatory and via private vehicle. Parent driving. --18:00 Tayler Moran R.N. Locked/Released at 04/11/2016 18:01 by Tayler Moran R.N.
--- NOTE | 2016-04-11 18:01 | ED DISCHARGE INSTRUCTIONS ---
Patient: EDGARD HORNER General Instructions [facility] VisitID: [id number] [place] [address] 26y, M Registration Date/Time: 04/11/2016 MRSA (Methicillin resistant Staph aureus) abscess located on the buttocks (no fluid collection or abscess currently). INSTRUCTIONS No restrictions to activity. No dietary restrictions. (use the bactroban you have three times daily on sores and intranasally twice daily, and finish all your antibiotics. see your pcp for follow up and you might benefit from dermatology referral.). Warnings: Further evaluation is necessary. It is very important to follow up with a physician. GENERAL WARNINGS: Return or contact your physician immediately if your condition worsens or changes unexpectedly, if not improving as expected, or if other problems arise. Your Current Medications: CONTINUE TAKING THE FOLLOWING MEDICATIONS: Amantadine HCl Oral : 100 mg daily. Doxycycline Calcium Oral. LamoTRIgine Oral : 100mg daily. [place] Carbonate Oral : Capsule 300 mg, daily. RisperiDONE Oral : Tablet Dispersible 2 mg, 2x a day. Stool Softener Oral. Tylenol* : prn. Prescription Medications: Bactrim DS 800 mg / 160 mg: take 1 tablet orally every 12 hours for 10 days. No refill. Substitution is permissible. Follow-up: Follow up with a gps field data collector in two weeks if not better. Reason for referral: dermatitis, likely staph/MRSA. Understanding of the discharge instructions verbalized by patient and family. No restrictions to activity. (Electronically signed by Shiela Liang PA-C 04/11/2016 13:09)
--- NOTE | 2016-04-11 18:01 | ED MED RECONCILIATION SUMMARY ---
Patient: EDGARD HORNER Medication Reconciliation Report [facility] VisitID: [id number] [address] [place] [address] 26y, M Registration Date/Time: 04/11/2016 Weight: 100.6 kg Height/Length: 73 in. BMI: 29.3 ALLERGIES: PCN The patient's Home Medications are listed below: CONTINUE TAKING THE FOLLOWING MEDICATIONS: Amantadine HCl Oral 100 mg, daily Doxycycline Calcium Oral LamoTRIgine Oral 100mg , daily [place] Carbonate Oral (300 mg), daily RisperiDONE Oral (2 mg), 2x a day Stool Softener Oral Tylenol The source(s) of the original Home Medication information: patient The following Medications were given to the patient in the Emergency Department: None. The following Medications were prescribed to the patient: Bactrim DS 800 mg / 160 mg: take 1 tablet orally every 12 hours for 10 days. No refill. Substitution is permissible. -- Shiela Liang PA-C
--- NOTE | 2016-04-11 18:01 | ED DISCHARGE INSTRUCTIONS ---
Patient: EDGARD HORNER General Instructions [facility] VisitID: [id number] [place] [address] 26y, M Registration Date/Time: 04/11/2016 MRSA (Methicillin resistant Staph aureus) abscess located on the buttocks (no fluid collection or abscess currently). INSTRUCTIONS No restrictions to activity. No dietary restrictions. (use the bactroban you have three times daily on sores and intranasally twice daily, and finish all your antibiotics. see your pcp for follow up and you might benefit from dermatology referral.). Warnings: Further evaluation is necessary. It is very important to follow up with a physician. GENERAL WARNINGS: Return or contact your physician immediately if your condition worsens or changes unexpectedly, if not improving as expected, or if other problems arise. Your Current Medications: CONTINUE TAKING THE FOLLOWING MEDICATIONS: Amantadine HCl Oral : 100 mg daily. Doxycycline Calcium Oral. LamoTRIgine Oral : 100mg daily. [place] Carbonate Oral : Capsule 300 mg, daily. RisperiDONE Oral : Tablet Dispersible 2 mg, 2x a day. Stool Softener Oral. Tylenol* : prn. Prescription Medications: Bactrim DS 800 mg / 160 mg: take 1 tablet orally every 12 hours for 10 days. No refill. Substitution is permissible. Follow-up: Follow up with a founder and chief technical officer in two weeks if not better. Reason for referral: dermatitis, likely staph/MRSA. Understanding of the discharge instructions verbalized by patient and family. No restrictions to activity. (Electronically signed by Shiela Liang PA-C 04/11/2016 13:09)
--- NOTE | 2016-04-11 18:01 | ED MED RECONCILIATION SUMMARY ---
Patient: EDGARD HORNER Medication Reconciliation Report [facility] VisitID: [id number] [address] [place] [address] 26y, M Registration Date/Time: 04/11/2016 Weight: 100.6 kg Height/Length: 73 in. BMI: 29.3 ALLERGIES: PCN The patient's Home Medications are listed below: CONTINUE TAKING THE FOLLOWING MEDICATIONS: Amantadine HCl Oral 100 mg, daily Doxycycline Calcium Oral LamoTRIgine Oral 100mg , daily [place] Carbonate Oral (300 mg), daily RisperiDONE Oral (2 mg), 2x a day Stool Softener Oral Tylenol The source(s) of the original Home Medication information: patient The following Medications were given to the patient in the Emergency Department: None. The following Medications were prescribed to the patient: Bactrim DS 800 mg / 160 mg: take 1 tablet orally every 12 hours for 10 days. No refill. Substitution is permissible. -- Shiela Liang PA-C
--- NOTE | 2016-04-11 18:01 | ED MAR SUMMARY ---
..... Medication Administration Record [facility] [address], [place] [id number] Patient: EDGARD HORNER Visit ID: [id number] 26y, M Weight: 100.6 kg Height/Length: 73 in BMI: 29.3 ALLERGIES: PCN
--- NOTE | 2016-04-11 18:01 | ED MAR SUMMARY ---
..... Medication Administration Record [facility] [address] [place], [place] [id number] Patient: EDGARD HORNER Visit ID: [id number] 26y, M Weight: 100.6 kg Height/Length: 73 in BMI: 29.3 ALLERGIES: PCN
== END 2016-04-11 12:40 | disposition home or self-care (01) ==
LOC: ED SRH 10:57
DX: L02.31 Cutaneous abscess of buttock (principal); B95.62 Methicillin resistant Staphylococcus aureus infection as the cause of diseases classified elsewhere; Z79.2 Long term (current) use of antibiotics; Z79.899 Other long term (current) drug therapy